=== PATIENT | female | born 1990 | race Two or more races ===

== ENCOUNTER 2025-01-28 06:10 | Day surgery (SDC) | payer OTHER ==
[2025-01-27 13:44] LABS: HEMATOCRIT 33.9 % (34.1-44.9); HEMOGLOBIN 11.4 g/dL (11.2-15.7); LYMPH % 34.4 % (19.3-53.1); MEAN CORPUSCULAR HEMOGLOBIN 29.1 pg (25.6-32.2); NEUT % 58.8 % (34.0-71.1); PLATELET COUNT 325 K/uL (163-369); RED BLOOD COUNT 3.92 M/uL (3.93-5.22); RED CELL DISTRIBUTION WIDTH 13.5 % (11.6-14.4)
[2025-01-27 13:45] LABS: BASO % 0.3 % (0.1-1.2); EOS # 0.32 (0.04-0.54); LYMPH # 3.72 (1.18-3.74); MONO # 0.36 (0.24-0.82); MONO % 3.3 % (4.7-12.5); NEUT # 6.36 (1.56-6.13)
[2025-01-27 14:06] LABS: INR 0.97; PARTIAL THROMBOPLASTIN TIME 30.1 SECONDS (22.0-34.0); PROTHROMBIN TIME 10.6 SECONDS (9.0-11.5)
[2025-01-27 14:38] LABS: ALBUMIN 3.6 gm/dL (3.4-5.0); BILIRUBIN TOTAL 0.29 mg/dL (0.3-1.2); CREATININE SERUM 0.6 mg/dL (0.55-1.02); GFR 115.85; GLOBULINA 3.8 G/DL (2.4-3.5); POTASSIUM 3.97 mEq/L (3.5-5.1); TOTAL PROTEIN 7.4 gm/dL (6.4-8.2)
[~2025-01-28 06:10] MED LIST: SYNTHROID175 MCG PO; SYNTHROID200 MCG PO
[2025-01-28] MEDS ORDERED: CEFOXITIN SODIUM 2,000 MG VIAL IV ONE ×2 (13:14→15:15)
[2025-01-28] MEDS ORDERED: CHLORHEXIDINE GLUCONATE 120 ML BOTTLE TOP ONE ×2 (15:01→15:15)
[2025-01-28] MEDS ORDERED: POVIDONE-IODINE 118 ML BOTT TOP ONE ×2 (15:01→15:15)
[2025-01-28] MEDS ORDERED: MORPHINE SULFATE 4 MG/ML VIAL IV PRN (16:45)
[2025-01-28] MEDS ORDERED: PROMETHAZINE HCL 50 MG/ML AMPUL IM ONE (16:45)
== END 2025-01-28 22:45 | disposition home or self-care (01) ==
LOC: CIR.AMB 06:10
PROVIDERS: ATTEND Obstetrics & Gynecology
DX: O02.1 Missed abortion (principal)

== ENCOUNTER 2025-02-04 07:16 | Inpatient (IN) | payer OTHER ==
[~2025-02-04] VITALS: Ht 172.7 cm; Wt 129.7 kg
[2025-02-04] MEDS ORDERED: PROMETHAZINE HCL 50 MG/ML AMPUL IM STA (07:57)
[2025-02-04] MEDS ORDERED: MORPHINE SULFATE 4 MG/ML VIAL IV STA (07:57)
[2025-02-04] MEDS ORDERED: PROMETHAZINE HCL 50 MG/ML AMPUL IM ONE (07:58)
[2025-02-04] MEDS ORDERED: 0.9 % SODIUM CHLORIDE 1,000 ML IV ONE (08:00)
[2025-02-04 08:50] LABS: BASO % 0.2 % (0.1-1.2); EOS # 0.19 (0.04-0.54); EOS % 1.1 % (0.7-7.0); HEMATOCRIT 36.1 % (34.1-44.9); HEMOGLOBIN 12.2 g/dL (11.2-15.7); LYMPH # 3.14 (1.18-3.74); LYMPH % 17.5 % (19.3-53.1); MEAN CORPUSCULAR HEMOGLOBIN 28.4 pg (25.6-32.2); MONO # 0.59 (0.24-0.82); MONO % 3.3 % (4.7-12.5); NEUT # 13.89 (1.56-6.13); NEUT % 77.6 % (34.0-71.1); PLATELET COUNT 353 K/uL (163-369); RED CELL DISTRIBUTION WIDTH 13.1 % (11.6-14.4)
[2025-02-04 09:05] LABS: INR 0.95; PARTIAL THROMBOPLASTIN TIME 29.6 SECONDS (22.0-34.0); PROTHROMBIN TIME 10.4 SECONDS (9.0-11.5)
[2025-02-04 09:34] LABS: ALBUMIN 3.5 gm/dL (3.4-5.0); BILIRUBIN TOTAL 0.25 mg/dL (0.3-1.2); CALCIUM 8.7 mg/dL (8.5-10.1); CREATININE SERUM 0.78 mg/dL (0.55-1.02); GFR 85.59; GLOBULINA 4.3 G/DL (2.4-3.5); POTASSIUM 3.8 mEq/L (3.5-5.1); TOTAL PROTEIN 7.8 gm/dL (6.4-8.2)
[2025-02-04] MEDS ORDERED: PIPERACILLIN/TAZOBACTAM SODIUM 3.375 GM VIAL IV ONE ×2 (09:48→10:00)
[2025-02-04] MEDS ORDERED: FAMOTIDINE/PF 20 MG/2 ML VIAL ONE ×2 (09:48→10:23)
[2025-02-04] MEDS ORDERED: MORPHINE SULFATE 4 MG/ML VIAL IV ONE (10:00)
[2025-02-04] MEDS ORDERED: FAMOtidine 10 MG/ML (4ML VIAL) IV ONE (10:00)
[2025-02-04 11:18] VITALS: BP 114/73
[2025-02-04] MEDS ORDERED: POVIDONE-IODINE 118 ML BOTT TOP ONE (15:44)
[2025-02-04] MEDS ORDERED: OXYTOCIN 10 UNITS/ML VIAL ONE (16:09)
[2025-02-04] MEDS ORDERED: IBUprofen 600 MG TABLET PO PRN (17:00)
[2025-02-04] MEDS ORDERED: ENOXAPARIN SODIUM 40 MG/0.4 ML SYRINGE SUBCUTANEO SCH (17:00)
[2025-02-04] MEDS ORDERED: GENTAMICIN SULFATE 40 MG/ML VIAL IV SCH (17:00)
[2025-02-04] MEDS ORDERED: CLINDAMYCIN PHOSPHATE 600 MG in 0.9 % SODIUM CHLORIDE 50 ML IV SCH (17:00)
[2025-02-04] MEDS ORDERED: CLINDAMYCIN PHOSPHATE 150 MG/ML (600mg) ONE (19:51)
[2025-02-04 20:58] VITALS: BP 114/73
[2025-02-04 22:06] LABS: PH,URINE 5.5 (5.0-8.0); URINE APPEARANCE Clear; URINE BILIRRUBIN Negative (NEGATIVE); URINE BLOOD Large; URINE COLOR Yellow; URINE GLUCOSE Negative (NEGATIVE); URINE KETONE Negative (NEGATIVE); URINE LEUKOCYTE Trace; URINE NITRATE Negative; URINE PROTEIN Trace (NEGATIVE); URINE UROBILINOGEN 0.2 E.U./dl
[2025-02-04 22:10] LABS: URINE BACTERIA 48.9 uL (0.0-1933); URINE CAST 1.91 uL (0.0-1.40); URINE EPITHELIAL CELLS 19.6 uL (0.0-38.8); URINE RBC 2655.6 uL (0.0-20.8)
[2025-02-04 23:06] VITALS: O2SAT 100
[2025-02-05 01:37] LABS: CALCIUM 8.3 mg/dL (8.5-10.1); CREATININE SERUM 0.69 mg/dL (0.55-1.02); GFR 98.59; POTASSIUM 3.79 mEq/L (3.5-5.1)
[2025-02-05 02:02] VITALS: BP 115/68
[2025-02-05 08:00] VITALS: BP 113/72
[2025-02-05 13:52] LABS: BASO % 0.4 % (0.1-1.2); EOS # 0.37 (0.04-0.54); EOS % 3.4 % (0.7-7.0); HEMOGLOBIN 10.2 g/dL (11.2-15.7); LYMPH # 4.38 (1.18-3.74); LYMPH % 40.8 % (19.3-53.1); MEAN CORPUSCULAR HEMOGLOBIN 27.6 pg (25.6-32.2); MONO # 0.49 (0.24-0.82); MONO % 4.6 % (4.7-12.5); NEUT # 5.42 (1.56-6.13); NEUT % 50.5 % (34.0-71.1); PLATELET COUNT 276 K/uL (163-369); RED CELL DISTRIBUTION WIDTH 13.3 % (11.6-14.4)
== END 2025-02-05 14:05 | disposition home or self-care (01) | DRG 770 ==
LOC: ER 08:10 → OB/GYN 10:29 → O/R 10:29 → OB/GYN 16:59
PROVIDERS: General Practice; ADMIT Obstetrics & Gynecology; ATTEND Obstetrics & Gynecology
PROC: BU4CZZZ Ultrasonography of Uterus and Ovaries (ICD-10-PCS; 2025-02-04)
PROC: 10D17ZZ Extraction of Products of Conception, Retained, Via Natural or Artificial Opening (ICD-10-PCS; principal; 2025-02-04 16:30)
DX: O03.1 Delayed or excessive hemorrhage following incomplete spontaneous abortion (principal)